=== PATIENT | female | born 1975 | race Caucasian/White ===

== ENCOUNTER 2017-06-01 04:01 | Inpatient (IN) | payer BC ==
[2017-06-01] MEDS ORDERED: Sodium Chloride 0.9% 500 ML IV ONE ×2 (04:24→04:44)
[2017-06-01] MEDS ORDERED: Sodium Chloride 0.9% 0 ML ONE (04:38)
[2017-06-01 04:42] LABS: BASO # 0.1 K/uL (0.0-0.2); BASO % 0.7 % (0.0-2.0); EOS # 0.3 K/uL (0.0-0.7); EOS % 4.1 % (0.0-4.0); HEMATOCRIT 37.2 % (34.0-47.0); LYMPH # 1.7 K/uL (1.0-4.3); LYMPH % 20.7 % (20.0-40.0); MEAN CELL VOLUME 85.6 fL (81.0-99.0); MEAN CORPUSCULAR HEMOGLOBIN 29.1 pg (27.0-31.0); MEAN CORPUSCULAR HGB CONC 34.1 g/dL (33.0-37.0); MEAN PLATELET VOLUME 8.2 fL (7.2-11.7); MONO # 0.7 K/uL (0.0-0.8); RED CELL DISTRIBUTION WIDTH 14.4 % (11.5-14.5); WHITE BLOOD COUNT 8.3 K/uL (4.8-10.8)
[2017-06-01 04:44] LABS: URINE BILIRUBIN NEGATIVE (NEGATIVE); URINE BLOOD NEGATIVE (NEGATIVE); URINE COLOR Straw (YELLOW); URINE GLUCOSE (UA) NORMAL (Normal); URINE KETONE NEGATIVE (NEGATIVE); URINE LEUKOCYTE ESTERASE NEG Leu/uL (Negative); URINE PROTEIN NEGATIVE (NEGATIVE); URINE UROBILINOGEN NORMAL mg/dL (0.2-1.0)
[2017-06-01 04:56] LABS: ALB/GLOB RATIO 1.3 (1.0-2.1); ALKALINE PHOSPHATASE 74 U/L (38-126); ALT/SGPT 37 U/L (9-52); AST/SGOT 23 U/L (14-36); BILIRUBIN,TOTAL 0.6 mg/dL (0.2-1.3); BLOOD UREA NITROGEN 12 mg/dL (7-17); CALCIUM 10.3 mg/dl (8.6-10.4); CARBON DIOXIDE 29 mmol/L (22-30); CHLORIDE 98 mmol/L (98-107); GFR AFRICAN-AMERICAN > 60; GLUCOSE,RANDOM 102 mg/dL (65-105); POTASSIUM 4.3 mmol/L (3.6-5.2); SODIUM 141 mmol/L (132-148); TOTAL PROTEIN 7.8 g/dL (6.3-8.3)
--- NOTE | 2017-06-01 06:07 | C.PDOC ---
History Of Present Illness 42 year old female who presents to the ER with a complaint of RUQ pain since last night. Patient states she has been unable to sleep due to worsening of pain. Patient reports she has had intermittent episodes of this pain and notes it usually self resolves, unlike tonight. Denies nausea, vomiting, or epigastric pain. Time Seen by Provider: 06/01/17 04:19 Chief Complaint (Nursing): Abdominal Pain History Per: Patient History/Exam Limitations: no limitations Onset/Duration Of Symptoms: Hrs Current Symptoms Are (Timing): Still Present Location Of Pain/Discomfort: RUQ Radiation Of Pain To:: None Quality Of Discomfort: Unable To Describe Associated Symptoms: denies: Fever, Chills, Nausea, Vomiting Exacerbating Factors: None Alleviating Factors: None Recent travel outside of the [place]: No Abnormal Vaginal Bleeding: No Past Medical History Reviewed: Historical Data, Nursing Documentation, Vital Signs Vital Signs: Last Vital Signs Temp 98.5 F 06/01/17 04:12 Pulse 89 06/01/17 04:12 Resp 18 06/01/17 04:12 BP 126/87 06/01/17 04:12 Pulse Ox 99 06/01/17 06:28 - Medical History PMH: Hypothyroidism Surgical History: No Surg Hx Family History: States: Unknown Family Hx - Social History Hx Alcohol Use: No Hx Substance Use: No - Immunization History Hx Tetanus Toxoid Vaccination: No Hx Influenza Vaccination: No Hx Pneumococcal Vaccination: No Review Of Systems Constitutional: Negative for: Fever, Chills Gastrointestinal: Positive for: Abdominal Pain. Negative for: Nausea, Vomiting Physical Exam - Physical Exam Appears: Non-toxic Skin: Normal Color, Warm, Dry Head: Atraumatic, Normacephalic Eye(s): bilateral: Normal Inspection, EOMI Oral Mucosa: Moist Neck: Normal, Supple Chest: Symmetrical, No Tenderness Cardiovascular: Rhythm Regular, No Murmur Respiratory: Normal Breath Sounds, No Rales, No Rhonchi, No Wheezing Gastrointestinal/Abdominal: Soft, Tenderness (RUQ), No Guarding, Other ( Positive rasmussen's sign) Back: No CVA Tenderness Neurological/Psych: Oriented x3, Normal Speech, Normal Cognition ED Course And Treatment - Laboratory Results Result Diagrams: 06/01/17 04:38 06/01/17 04:38 O2 Sat by Pulse Oximetry: 99 (Room air) Pulse Ox Interpretation: Normal - CT Scan/US Abdominal US Other Rad Studies (CT/US): Read By Radiologist, Radiology Report Reviewed CT/US Interpretation: FINDINGS: Liver: Echogenic liver consistent with hepatic steatosis. No intrahepatic bile duct dilation. Gallbladder: There is cholelithiasis with thickened gallbladder wall measuring 8 mm and. pericholecystic fluid worrisome for acute cholecystitis. Common bile duct: Unremarkable as visualized. No stones. No dilation. Pancreas: Unremarkable as visualized. Right kidney: Unremarkable. No stones. No solid mass. No hydronephrosis. IMPRESSION: There is cholelithiasis with thickened gallbladder wall and pericholecystic fluid worrisome for acute. cholecystitis Progress Note: Blood work, urinalysis, and abdominal US ordered. Pepcid, toradol , and IV fluids administered. Disposition - Disposition Disposition Time: 06:59 Condition: STABLE Forms: [employer] (Yakut) - Clinical Impression Clinical Impression: Acute cholecystitis - Scribe Statement The provider has reviewed the documentation as recorded by the Scribdoug Hopkins All medical record entries made by the Pacoibdoug were at my direction and personally dictated by me. I have reviewed the chart and agree that the record accurately reflects my personal performance of the history, physical exam, medical decision making, and the department course for this patient. I have also personally directed, reviewed, and agree with the discharge instructions and disposition. Physician Patient Turnover Patient Signed Over To: Yasmeen Carter Handoff Comments: needs surgical consult for possible admission
--- NOTE | 2017-06-01 07:54 | CP.PCM.CON ---
<Claudia Bowden - Last Filed: 06/01/17 09:12> History of Present Illness - History of Present Illness History of Present Illness: Surgery Patient is a 42 yo F w PMH of post op DVT, hypothyroidism who presents with complaints of severe episodic RUQ abdominal pain. She states that the pain came on yesterday afternoon, quickly worsened after having dinner and continued to progress late last night, which prompted her to come to the ED for further evaluation. She reports feelings of nausea and 2 episodes of vomiting in association. Patient further explains that these episodes of pain have been on- and-off over the last 4 months ago. Typically the pain is worse after eating big meals and have been associated with n/v. She describes last night to be the worst episode thus far. Patient reports no improvement with antacids and aggravation when doubling over. Of note, patient has had a long standing history of gastritis, however this current issue feels much different then her usual episodes. Pt had 6 or 7 similar episodes last few months. At this time, patient is in NAD. Denies signs of chest pain, SOB, hematemesis, hematochezia, hematuria, fever, diarrhea or constipation. No other complaints are noted. US shows thicken GB wall, pericholecystic fluds, gallstones reads as acute cholecystitis. Surgery is consulted to evaluate for acute cholecystitis PMH: DVT x2 , hypothyroid PSH: c section x2 Review of Systems - Constitutional Constitutional: Chills. absent: Fever, Headache - Cardiovascular Cardiovascular: absent: Chest Pain, Dyspnea, Leg Edema - Respiratory Respiratory: absent: Dyspnea - Gastrointestinal Gastrointestinal: Abdominal Pain, Bloating, Nausea, Vomiting. absent: Change in Bowel Habits, Constipation, Diarrhea, Hematemesis, Hematochezia, Loose Stools - Genitourinary Genitourinary: Urinary Frequency. 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) - PSYCHIATRIC Hx Substance Use: No - SURGICAL HISTORY Hx Section: Yes (3) - ANESTHESIA Hx Anesthesia: Yes Hx Anesthesia Reactions: No Hx Malignant Hyperthermia: No Meds Allergies/Adverse Reactions: Allergies Allergy/AdvReac Type Severity Reaction Status Date / Time No Known Allergies Allergy Unverified 06/01/17 04:11 - Medications Medications: Levothyroxine Ferrous Sulfate Physical Exam - Constitutional Appears: Non-toxic, No Acute Distress - Head Exam Head Exam: ATRAUMATIC, NORMOCEPHALIC - ENT Exam ENT Exam: Mucous Membranes Moist - Neck Exam Neck exam: Positive for: Full Rom - Respiratory Exam Respiratory Exam: Clear to Auscultation Bilateral, NORMAL BREATHING PATTERN. absent: Rales, Rhonchi, Wheezes - Cardiovascular Exam Cardiovascular Exam: REGULAR RHYTHM, RRR, +S1, +S2 - GI/Abdominal Exam GI & Abdominal Exam: Normal Bowel Sounds, Soft, Tenderness. absent: Distended, Guarding, Organomegaly, Rebound, Rigid Additional comments: (+) tenderness to deep palpation in RUQ and epigastric regions. (+) Venegas's sign - Rectal Exam Rectal Exam: Deferred - Neurological Exam Neurological exam: Alert, Oriented x3 - Skin Skin Exam: Normal Color, Warm Results - Vital Signs Recent Vital Signs: Last Vital Signs Temp 97.5 F L 06/01/17 06:59 Pulse 76 06/01/17 06:59 Resp 14 06/01/17 06:59 BP 107/70 06/01/17 06:59 Pulse Ox 99 06/01/17 07:04 - Labs Result Diagrams: 06/01/17 04:38 06/01/17 04:38 Labs: Laboratory Results - last 24 hr 06/01/17 06/01/17 06/01/17 04:38 04:38 04:38 WBC 8.3 RBC 4.35 Hgb 12.7 Hct 37.2 MCV 85.6 MCH 29.1 MCHC 34.1 RDW 14.4 Plt Count 231 MPV 8.2 Neut % (Auto) 65.5 Lymph % (Auto) 20.7 Winston % (Auto) 9.0 Eos % (Auto) 4.1 H Baso % (Auto) 0.7 Neut # 5.4 Lymph # 1.7 Winston # 0.7 Eos # 0.3 Baso # 0.1 Sodium 141 Potassium 4.3 Chloride 98 Carbon Dioxide 29 Anion Gap 19 BUN 12 Creatinine 0.7 Est GFR ( Amer) > 60 Est GFR (Non-Af Amer) > 60 Random Glucose 102 Calcium 10.3 Total Bilirubin 0.6 AST 23 ALT 37 Alkaline Phosphatase 74 Total Protein 7.8 Albumin 4.4 Globulin 3.5 Albumin/Globulin Ratio 1.3 Lipase 151 Urine Color Straw Urine Clarity Clear Urine pH 7.0 Ur Specific [place] 1.009 Urine Protein Negative Urine Glucose (UA) Normal Urine Ketones Negative Urine Blood Negative Urine Nitrate Negative Urine Bilirubin Negative Urine Urobilinogen Normal Ur Leukocyte Esterase Neg Ur Squamous Epith Cells 1 Urine HCG, Qual Negative Assessment & Plan - Assessment and Plan (Free Text) Assessment: 42 yo F with acute cholecystitis - NPO -IVF -ABX -Lap yassine tomorrow - Consent in chart DW Dr. Welch <Khurram Welch - Last Filed: 06/02/17 18:45> Meds - Medications Medications: Current Medications Acetaminophen (Tylenol 325mg Tab) 975 mg PO Q6 PRN PRN Reason: Fever >100.4 F Enoxaparin Sodium (Lovenox) 40 mg SC DAILY [facility] Last Admin: 06/01/17 09:48 Dose: 40 mg Hydromorphone HCl (Dilaudid) 0.5 mg IVP Q4H PRN PRN Reason: Pain, severe (8-10) Last Admin: 06/02/17 06:11 Dose: 0.5 mg Sodium Chloride (Sodium Chloride 0.9%) 1,000 mls @ 100 mls/hr IV .Q10H [facility] Last Admin: 06/02/17 15:30 Dose: Not Given Piperacillin Sod/Tazobactam Sod (Zosyn 3.375 Gm Iv Premix) 3.375 gm in 50 mls @ 100 mls/hr IVPB Q8H [facility] Last Admin: 06/02/17 10:40 Dose: 50 mls Metronidazole (Flagyl) 250 mg in 50 mls @ 100 mls/hr IVPB Q8H [facility] Stop: 06/06/17 21:01 Last Admin: 06/02/17 14:32 Dose: 100 mls/hr Levothyroxine Sodium (Synthroid) 75 mcg PO DAILY@0630 [facility] Last Admin: 06/02/17 07:50 Dose: 75 mcg Ondansetron HCl (Zofran Inj) 4 mg IVP Q4 PRN PRN Reason: Nausea/Vomiting Last Admin: 06/02/17 07:03 Dose: 4 mg Oxycodone/Acetaminophen (Percocet 5/325 Mg Tab) 2 tab PO Q4H PRN PRN Reason: Pain, Mild (1-3) Stop: 06/05/17 12:23 Last Admin: 06/02/17 18:09 Dose: 2 tab Pantoprazole Sodium (Protonix Ec Tab) 40 mg PO DAILY@1200 [facility] Last Admin: 06/02/17 14:32 Dose: 40 mg Results - Vital Signs Recent Vital Signs: Last Vital Signs Temp 97.8 F 06/02/17 15:00 Pulse 92 H 06/02/17 15:00 Resp 20 06/02/17 15:00 BP 111/76 06/02/17 15:00 Pulse Ox 96 06/02/17 15:00 - Labs Result Diagrams: 06/02/17 07:35 06/02/17 07:35 Labs: Laboratory Results - last 24 hr 06/02/17 06/02/17 06/02/17 07:23 07:35 07:35 WBC 5.7 RBC 3.93 Hgb 11.6 Hct 34.1 MCV 86.8 MCH 29.5 MCHC 33.9 RDW 14.6 H Plt Count 198 MPV 8.4 Neut % (Auto) 59.3 Lymph % (Auto) 25.1 Winston % (Auto) 10.6 H Eos % (Auto) 4.1 H Baso % (Auto) 0.9 Neut # 3.4 Lymph # 1.4 Winston # 0.6 Eos # 0.2 Baso # 0.0 PT 11.8 INR 1.1 APTT 28 Sodium Potassium Chloride Carbon Dioxide Anion Gap BUN Creatinine Est GFR ( Amer) Est GFR (Non-Af Amer) Random Glucose Calcium Total Bilirubin AST ALT Alkaline Phosphatase Total Protein Albumin Globulin Albumin/Globulin Ratio Urine HCG, Qual Negative 06/02/17 07:35 WBC RBC Hgb Hct MCV MCH MCHC RDW Plt Count MPV Neut % (Auto) Lymph % (Auto) Winston % (Auto) Eos % (Auto) Baso % (Auto) Neut # Lymph # Winston # Eos # Baso # PT INR APTT Sodium 143 Potassium 4.4 Chloride 105 Carbon Dioxide 28 Anion Gap 14 BUN 8 Creatinine 0.8 Est GFR ( Amer) > 60 Est GFR (Non-Af Amer) > 60 Random Glucose 90 Calcium 9.2 Total Bilirubin 0.8 AST 23 ALT 37 Alkaline Phosphatase 70 Total Protein 7.0 Albumin 3.9 Globulin 3.1 Albumin/Globulin Ratio 1.3 Urine HCG, Qual Attending/Attestation - Attestation I have personally seen and examined this patient.: Yes I have fully participated in the care of the patient.: Yes I have reviewed all pertinent clinical information: Yes Notes (Text): 06/02/17 18:44 Pt was seen and examined at bedside Agree with above note and assessment Pt with Cholelithiasis and Cholecystitis Abdomen : Tender in RUQ Labs and Radiology reviewed Ass: Cholelithiasis with cholecystitis Plan : Pt would need Lap/Robotic Cholecystectomy possible Open Consent NPO, IVF IV antibiotics Plan d.w pt in detail Risk and benefit explained in detail.
[2017-06-01] MEDS ORDERED: Piperacillin/Tazobact 3.375 gm 100 ML IV STA (08:20)
[2017-06-01] MEDS ORDERED: Piperacillin/Tazobact 3.375 gm 100 ML IVPB ONE (08:53)
[2017-06-01] MEDS ORDERED: Piperacillin/Tazobact 3.375 GM in Sodium Chloride 100 ML IVPB SCH (09:30)
[2017-06-01] MEDS: Sodium Chloride 0.9% 1,000 ML IV SCH ×2 (09:39→18:29)
[2017-06-01] MEDS ORDERED: Enoxaparin 40 mg Syringe ONE (09:42)
[2017-06-01] MEDS ORDERED: Levothyroxine 75 MCG TAB PO SCH (10:00)
[2017-06-01] MEDS ORDERED: Enoxaparin 40 mg Syringe SC SCH (10:00)
--- NOTE | 2017-06-01 10:54 | US ---
Right upper quadrant abdominal ultrasound History: Right upper quadrant abdominal pain. Comparison: None available. Technique: Real-time sonography was performed through the right upper quadrant of the abdomen. Findings: Liver: 16.4 centimeters in length. Increased echogenicity of the hepatic parenchymal cortex suggestive for fatty infiltration versus hepatic parenchymal disease. Gallbladder: Cholelithiasis. Gallbladder wall is thickened measuring up to 8 millimeters. Adjacent pericholecystic fluid and edema. Common bile duct measures 3.6 millimeters, within normal limits. Visualized portions of the pancreas are preserved. Pancreatic tail not well visualized. Visualized aorta and IVC are preserved. Right kidney: 8.8 x 4.0 x 4.6 centimeters. No calculi or hydronephrosis. Impression: Cholelithiasis with gallbladder wall thickening and edema with associated pericholecystic fluid. These findings are concerning for possible acute cholecystitis. Clinical correlation. These findings were preliminarily reported at 6:25 a.m. on 06/01/[address] Greg Camacho from [facility].
[2017-06-01] MEDS: Piperacill/Tazo 3.375gm in Dex 3.375 GM/50 ML BAG IVPB SCH ×2 (12:15→18:29)
--- NOTE | 2017-06-01 17:51 | RAD ---
HISTORY: preop COMPARISON: No prior. FINDINGS: LUNGS: No active pulmonary disease. PLEURA: No significant pleural effusion identified, no pneumothorax apparent. CARDIOVASCULAR: Normal. OSSEOUS STRUCTURES: No significant abnormalities. VISUALIZED UPPER ABDOMEN: Normal. OTHER FINDINGS: None. IMPRESSION: No active disease.
[2017-06-01] MEDS: HYDROmorphone 0.5 mg/0.5 ml ISec IVP PRN (18:29)
--- NOTE | 2017-06-01 21:12 | CP.PCM.HP ---
Past Patient History - Past Medical History & Family History Past Medical History?: Yes - Past Social History Smoking Status: Never Smoked - CARDIAC Hx Cardiac Disorders: No - PULMONARY Hx Respiratory Disorders: No - NEUROLOGICAL Hx Neurological Disorder: No - HEENT Hx HEENT Problems: No - RENAL Hx Chronic Kidney Disease: No - ENDOCRINE/METABOLIC Hx Hypothyroidism: Yes - HEMATOLOGICAL/ONCOLOGICAL Hx Anemia: Yes (Iron-deficiency anemia) Other/Comment: H/o of DVTs during , anti-phospholipid syndrome - INTEGUMENTARY Hx Dermatological Problems: No - MUSCULOSKELETAL/RHEUMATOLOGICAL Hx Musculoskeletal Disorders: No Hx Falls: No - GASTROINTESTINAL Hx Bowel Surgery: No 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) - GENITOURINARY/GYNECOLOGICAL Hx Genitourinary Disorders: No - PSYCHIATRIC Hx Psychophysiologic Disorder: No Hx Substance Use: No - SURGICAL HISTORY Hx Section: Yes (3) - ANESTHESIA Hx Anesthesia: Yes Hx Anesthesia Reactions: No Hx Malignant Hyperthermia: No Has any member of the family had a problem w/ anesthesia?: No Meds Allergies/Adverse Reactions: Allergies Allergy/AdvReac Type Severity Reaction Status Date / Time No Known Allergies Allergy Unverified 06/01/17 04:11 Physical Exam - Constitutional Appears: Well - Head Exam Head Exam: ATRAUMATIC, NORMAL INSPECTION, NORMOCEPHALIC - Eye Exam Eye Exam: EOMI, Normal appearance, PERRL Pupil Exam: NORMAL ACCOMODATION, PERRL - ENT Exam ENT Exam: Mucous Membranes Moist, Normal Exam - Neck Exam Neck exam: Positive for: Normal Inspection - Respiratory Exam Respiratory Exam: Decreased Breath Sounds - Cardiovascular Exam Cardiovascular Exam: REGULAR RHYTHM, +S1, +S2 - GI/Abdominal Exam GI & Abdominal Exam: Diminished Bowel Sounds, Soft - Rectal Exam Rectal Exam: Deferred Results - Vital Signs Recent Vital Signs: Last Vital Signs Temp 97.9 F 06/01/17 16:05 Pulse 67 06/01/17 16:05 Resp 20 06/01/17 16:05 BP 106/72 06/01/17 16:05 Pulse Ox 98 06/01/17 16:05 - Labs Result Diagrams: 06/01/17 04:38 06/01/17 04:38
[2017-06-01] MEDS: metroNIDAZOLE IV 250mg/50 ml 250 MG/50 ML BAG IVPB SCH (21:34)
[2017-06-01] MEDS ORDERED: metroNIDAZOLE IV 500 mg/100 ml 250 MG in Premixed IV 1 EA IVPB SCH (22:00)
[2017-06-02] MEDS: Piperacill/Tazo 3.375gm in Dex 3.375 GM/50 ML BAG IVPB SCH ×3 (02:42→19:43)
[2017-06-02] MEDS: Sodium Chloride 0.9% 1,000 ML IV SCH ×2 (05:39→15:30)
[2017-06-02] MEDS: metroNIDAZOLE IV 250mg/50 ml 250 MG/50 ML BAG IVPB SCH ×3 (05:39→21:29)
[2017-06-02] MEDS: HYDROmorphone 0.5 mg/0.5 ml ISec IVP PRN (06:11)
[2017-06-02 07:50] LABS: BASO % 0.9 % (0.0-2.0); EOS # 0.2 K/uL (0.0-0.7); EOS % 4.1 % (0.0-4.0); HEMATOCRIT 34.1 % (34.0-47.0); LYMPH # 1.4 K/uL (1.0-4.3); LYMPH % 25.1 % (20.0-40.0); MEAN CELL VOLUME 86.8 fL (81.0-99.0); MEAN CORPUSCULAR HEMOGLOBIN 29.5 pg (27.0-31.0); MEAN CORPUSCULAR HGB CONC 33.9 g/dL (33.0-37.0); MEAN PLATELET VOLUME 8.4 fL (7.2-11.7); MONO # 0.6 K/uL (0.0-0.8); MONO % 10.6 % (0.0-10.0); NRBC % 0.1 % (0.0-2.0); RED CELL DISTRIBUTION WIDTH 14.6 % (11.5-14.5); WHITE BLOOD COUNT 5.7 K/uL (4.8-10.8)
[2017-06-02] MEDS: Levothyroxine 75 MCG TAB PO SCH (07:50)
[2017-06-02 07:59] LABS: INR 1.1
[2017-06-02 08:16] LABS: CHLORIDE 105 mmol/L (98-107); POTASSIUM 4.4 mmol/L (3.6-5.2); SODIUM 143 mmol/L (132-148)
[2017-06-02 08:18] LABS: BILIRUBIN,TOTAL 0.8 mg/dL (0.2-1.3); GFR AFRICAN-AMERICAN > 60
[2017-06-02 08:19] LABS: ALB/GLOB RATIO 1.3 (1.0-2.1); ALKALINE PHOSPHATASE 70 U/L (38-126); ALT/SGPT 37 U/L (9-52); AST/SGOT 23 U/L (14-36); BLOOD UREA NITROGEN 8 mg/dL (7-17); CALCIUM 9.2 mg/dl (8.6-10.4); CARBON DIOXIDE 28 mmol/L (22-30); GLUCOSE,RANDOM 90 mg/dL (65-105)
[2017-06-02] MEDS ORDERED: Midazolam 2 MG/2 ML VIAL ONE (09:04)
[2017-06-02] MEDS ORDERED: Propofol 10 mg/ml Inj (20 ML) ONE (09:05)
[2017-06-02] MEDS ORDERED: Rocuronium 10 mg/ml (5 ml) ONE (09:05)
[2017-06-02] MEDS ORDERED: Lactated Ringer's 1,000 ML IV ONE ×3 (09:14→11:26)
[2017-06-02] MEDS ORDERED: Bupivacaine-Epi 0.25%-1:200,000 PF Inj ONE (09:33)
[2017-06-02] MEDS ORDERED: cefOXitin IV 1 gm in Dextrose 0 GM/0 ML BAG IVPB ONE (09:33)
[2017-06-02] MEDS ORDERED: Lidocaine 1% Inj (20ml) ONE (09:33)
[2017-06-02] MEDS: Pantoprazole 40 mg EC Tab PO SCH ×2 (10:30→14:32)
[2017-06-02] MEDS ORDERED: Esmolol 100 mg/10ml Inj IV ONE (11:13)
[2017-06-02] MEDS ORDERED: Neostigmine Methylsulfate 3mg/3ml Syringe IV ONE (11:15)
[2017-06-02] MEDS ORDERED: Labetalol 25mg/5ml Syringe ONE (11:27)
--- NOTE | 2017-06-02 12:24 | PCM.SURG1 ---
Surgeon's Initial Post Op Note - Surgeon's Notes Surgeon: Dr. Welch Underground Distribution Engineer: Claudia Bowden PGY2, [place] Type of Anesthesia: General Endo Pre-Operative Diagnosis: Acute cholecystitis Operative Findings: pericholecystic fluids. acute cholecystitis , umbilical hernia Post-Operative Diagnosis: Same Operation Performed: Robot assisted laparoscopic cholecystitis , umbilical hernia repair Specimen/Specimens Removed: Gallbladder Estimated Blood Loss: EBL {In ML}: 10 Blood Products Given: N/A Drains Used: No Drains Post-Op Condition: Good Date of Surgery/Procedure: 06/02/17 Time of Surgery/Procedure: 12:23
[2017-06-02] MEDS ORDERED: HYDROmorphone 0.5 mg/0.5 ml ISec IVP PRN (12:29)
[2017-06-02] MEDS: Oxycodone/Acetaminophen 5/325 mg Tab PO PRN (18:09)
--- NOTE | 2017-06-02 18:53 | CP.PCM.PN ---
Subjective - Date & Time of Evaluation Date of Evaluation: 06/02/17 Time of Evaluation: 10:40 - Subjective Subjective: clinically same Objective - Vital Signs/Intake and Output Vital Signs (last 24 hours): Temp Pulse Resp BP Pulse Ox 97.8 F 92 H 20 111/76 96 06/02/17 15:00 06/02/17 15:00 06/02/17 15:00 06/02/17 15:00 06/02/17 15:00 Intake and Output: 06/02/17 06/02/17 06:59 18:59 Intake Total 300 Output Total 300 Balance 0 - Medications Medications: Current Medications Acetaminophen (Tylenol 325mg Tab) 975 mg PO Q6 PRN PRN Reason: Fever >100.4 F Enoxaparin Sodium (Lovenox) 40 mg SC DAILY [facility] Last Admin: 06/01/17 09:48 Dose: 40 mg Hydromorphone HCl (Dilaudid) 0.5 mg IVP Q4H PRN PRN Reason: Pain, severe (8-10) Last Admin: 06/02/17 06:11 Dose: 0.5 mg Sodium Chloride (Sodium Chloride 0.9%) 1,000 mls @ 100 mls/hr IV .Q10H [facility] Last Admin: 06/02/17 15:30 Dose: Not Given Piperacillin Sod/Tazobactam Sod (Zosyn 3.375 Gm Iv Premix) 3.375 gm in 50 mls @ 100 mls/hr IVPB Q8H [facility] Last Admin: 06/02/17 10:40 Dose: 50 mls Metronidazole (Flagyl) 250 mg in 50 mls @ 100 mls/hr IVPB Q8H [facility] Stop: 06/06/17 21:01 Last Admin: 06/02/17 14:32 Dose: 100 mls/hr Levothyroxine Sodium (Synthroid) 75 mcg PO DAILY@0630 [facility] Last Admin: 06/02/17 07:50 Dose: 75 mcg Ondansetron HCl (Zofran Inj) 4 mg IVP Q4 PRN PRN Reason: Nausea/Vomiting Last Admin: 06/02/17 07:03 Dose: 4 mg Oxycodone/Acetaminophen (Percocet 5/325 Mg Tab) 2 tab PO Q4H PRN PRN Reason: Pain, Mild (1-3) Stop: 06/05/17 12:23 Last Admin: 06/02/17 18:09 Dose: 2 tab Pantoprazole Sodium (Protonix Ec Tab) 40 mg PO DAILY@1200 [facility] Last Admin: 06/02/17 14:32 Dose: 40 mg - Labs Labs: 06/02/17 07:35 06/02/17 07:35 PT 11.8 SECONDS (9.7-12.2) 06/02/17 07:35 INR 1.1 06/02/17 07:35 APTT 28 SECONDS (21-34) 06/02/17 07:35
[2017-06-03] MEDS: HYDROmorphone 0.5 mg/0.5 ml ISec IVP PRN (01:21)
[2017-06-03] MEDS: Sodium Chloride 0.9% 1,000 ML IV SCH ×2 (01:21→12:15)
[2017-06-03] MEDS: Piperacill/Tazo 3.375gm in Dex 3.375 GM/50 ML BAG IVPB SCH ×2 (04:24→12:16)
[2017-06-03] MEDS: metroNIDAZOLE IV 250mg/50 ml 250 MG/50 ML BAG IVPB SCH ×2 (04:27→13:34)
--- NOTE | 2017-06-03 05:16 | OP ---
PROCEDURE DATE: 06/02/2017 PREOPERATIVE DIAGNOSES: Cholelithiasis and cholecystitis. POSTOPERATIVE DIAGNOSES: 1. Cholelithiasis and acute cholecystitis. 2. Umbilical hernia containing preperitoneal fat 2 x 2 cm. PROCEDURE: 1. Robotic cholecystectomy. 2. A primary umbilical hernia repair with a mesh. SURGEON: Khurram Welch MD COUNSELING AIDE: KACEY Malone TYPE OF ANESTHESIA: General endotracheal tube anesthesia. ESTIMATED BLOOD LOSS: Around 10 mL DRAIN: None. PATHOLOGY: 1. The gallbladder was sent to the pathology. 2. Umbilical hernial sac and content. COMPLICATIONS: None. INTRAOPERATIVE FINDINGS: The patient had changes of acute cholecystitis and cholelithiasis and the patient also had 2 x 2 cm large umbilical hernia. DESCRIPTION OF PROCEDURE: On intraoperative steps, this 42-year-old female who was diagnosed with cholecystitis and cholelithiasis and the patient was consented for robotic cholecystectomy possible open, brought to the OR, and placed supine on the operating table. After induction of the anesthesia, the abdomen was prepped and draped in usual sterile fashion. The infraumbilical transverse incision was made after incising the skin and subcutaneous tissue. The patient found to have a large umbilical hernia and through the umbilical hernia, the robotic camera port was placed, pneumo was created. Another three 8-mm port was placed in upper abdomen, robot was brought in, camera arm as well as arm 1 and arm 2 were docked and gallbladder was retracted cranially. Calot's triangle dissection was done. The gallbladder was aspirated because it was extremely thick and edematous and Calot's triangle dissection was done. Intra Op Firfly was used and Ductal anatomy was identified. After that The cystic duct and cystic artery was identified and clipped at 3 places and cut in between 2 clips near by gallbladder and the gallbladder was dissected free from the gallbladder fossa, taken in an endo catch bag, taken out through the umbilical port site, and sent off the table for the pathology. There was a proper hemostasis in each and every part of the procedure and all the instrument was taken off, the robot was undocked. All the ports were taken down under vision, pneumo was deflated. Now, the umbilical port site hernia was explored and hernial sac and content was dissected and preperitoneal fat and hernial sac was sent off the tablet for the pathology and the hernial defect was closed primarily with 0 Prolene interrupted sutures multiple and after the proper hernia repair, the skin was closed with 4-0 Monocryl and dry dressing was applied. The patient tolerated the procedure well. Count of the instruments and gauze was correct. There was no apparent complications. The patient was extubated in OR and sent to the postanesthesia care unit in stable condition. Khurram Welch MD MTDD
[2017-06-03] MEDS: Levothyroxine 75 MCG TAB PO SCH (05:57)
[2017-06-03 08:00] LABS: BASO % 0.4 % (0.0-2.0); EOS # 0.1 K/uL (0.0-0.7); EOS % 0.8 % (0.0-4.0); HEMATOCRIT 33.2 % (34.0-47.0); LYMPH # 1.5 K/uL (1.0-4.3); LYMPH % 16.5 % (20.0-40.0); MEAN CELL VOLUME 86.7 fL (81.0-99.0); MEAN CORPUSCULAR HEMOGLOBIN 29.3 pg (27.0-31.0); MEAN CORPUSCULAR HGB CONC 33.8 g/dL (33.0-37.0); MEAN PLATELET VOLUME 8.4 fL (7.2-11.7); MONO # 0.9 K/uL (0.0-0.8); MONO % 10.2 % (0.0-10.0); RED CELL DISTRIBUTION WIDTH 14.3 % (11.5-14.5); WHITE BLOOD COUNT 8.8 K/uL (4.8-10.8)
[2017-06-03 08:16] LABS: CHLORIDE 104 mmol/L (98-107); POTASSIUM 3.8 mmol/L (3.6-5.2); SODIUM 142 mmol/L (132-148)
[2017-06-03 08:19] LABS: GFR AFRICAN-AMERICAN > 60
[2017-06-03 08:20] LABS: ALB/GLOB RATIO 1.3 (1.0-2.1); ALKALINE PHOSPHATASE 59 U/L (38-126); ALT/SGPT 44 U/L (9-52); AST/SGOT 28 U/L (14-36); BLOOD UREA NITROGEN 6 mg/dL (7-17); CALCIUM 8.7 mg/dl (8.6-10.4); CARBON DIOXIDE 27 mmol/L (22-30); GLUCOSE,RANDOM 101 mg/dL (65-105); TOTAL PROTEIN 6.4 g/dL (6.3-8.3)
--- NOTE | 2017-06-03 08:24 | CP.PCM.PN ---
Addendum entered and electronically signed by Claudia Bowden DO 06/03/17 09:59: OK to DC for surgical standpoint. Original Note: <Tk Martin - Last Filed: 06/03/17 08:26> Subjective - Date & Time of Evaluation Date of Evaluation: 06/03/17 Time of Evaluation: 07:15 - Subjective Subjective: General Surgery- Dr. Welch Pt S&E at bedside this AM. NAEO. Pt pain doing better, pain appropriately tender around incision. tolerating diet. +OOB. - BM or flatus. Denies CP/SOB N/V /D F/C Objective - Vital Signs/Intake and Output Vital Signs (last 24 hours): Temp Pulse Resp BP Pulse Ox 98.4 F 95 H 18 125/73 96 06/02/17 23:20 06/02/17 23:20 06/02/17 23:20 06/02/17 23:20 06/02/17 23:20 Intake and Output: 06/03/17 06/03/17 06:59 18:59 Intake Total 510 Balance 510 - Medications Medications: Current Medications Acetaminophen (Tylenol 325mg Tab) 975 mg PO Q6 PRN PRN Reason: Fever >100.4 F Enoxaparin Sodium (Lovenox) 40 mg SC DAILY [facility] Last Admin: 06/01/17 09:48 Dose: 40 mg Hydromorphone HCl (Dilaudid) 0.5 mg IVP Q4H PRN PRN Reason: Pain, severe (8-10) Last Admin: 06/03/17 01:21 Dose: 0.5 mg Sodium Chloride (Sodium Chloride 0.9%) 1,000 mls @ 100 mls/hr IV .Q10H [facility] Last Admin: 06/03/17 01:21 Dose: 100 mls/hr Piperacillin Sod/Tazobactam Sod (Zosyn 3.375 Gm Iv Premix) 3.375 gm in 50 mls @ 100 mls/hr IVPB Q8H [facility] Last Admin: 06/03/17 04:24 Dose: 100 mls/hr Metronidazole (Flagyl) 250 mg in 50 mls @ 100 mls/hr IVPB Q8H [facility] Stop: 06/06/17 21:01 Last Admin: 09/14/17 04:27 Dose: 100 mls/hr Levothyroxine Sodium (Synthroid) 75 mcg PO DAILY@0630 [facility] Last Admin: 06/03/17 05:57 Dose: 75 mcg Ondansetron HCl (Zofran Inj) 4 mg IVP Q4 PRN PRN Reason: Nausea/Vomiting Last Admin: 06/03/17 01:27 Dose: 4 mg Oxycodone/Acetaminophen (Percocet 5/325 Mg Tab) 2 tab PO Q4H PRN PRN Reason: Pain, Mild (1-3) Stop: 06/05/17 12:23 Last Admin: 06/02/17 18:09 Dose: 2 tab Pantoprazole Sodium (Protonix Ec Tab) 40 mg PO DAILY@1200 [facility] Last Admin: 06/02/17 14:32 Dose: 40 mg - Labs Labs: 06/03/17 07:42 06/02/17 07:35 PT 11.8 SECONDS (9.7-12.2) 06/02/17 07:35 INR 1.1 06/02/17 07:35 APTT 28 SECONDS (21-34) 06/02/17 07:35 - Constitutional Appears: No Acute Distress - Head Exam Head Exam: ATRAUMATIC - Eye Exam Eye Exam: EOMI - ENT Exam ENT Exam: Mucous Membranes Moist - Respiratory Exam Respiratory Exam: NORMAL BREATHING PATTERN. absent: Accessory Muscle Use, Rales , Rhonchi, Wheezes - Cardiovascular Exam Cardiovascular Exam: +S1, +S2 - GI/Abdominal Exam GI & Abdominal Exam: Soft, Tenderness. absent: Distended, Firm, Rigid, Hernia Additional comments: appropriately tender around incision - Extremities Exam Extremities Exam: absent: Calf Tenderness - Neurological Exam Neurological Exam: Alert, Awake, Oriented x3 - Psychiatric Exam Psychiatric exam: Normal Affect - Skin Skin Exam: Normal Color, Warm Assessment and Plan - Assessment and Plan (Free Text) Assessment: 42F s/p Robot assisted laparoscopic cholecystitis , umbilical hernia repair POD# 1 Plan: - encourage ambulation/IC - pain control - If pt has return of bowel function, cleared for discharge - further recs per Dr. Yuri Martin PGY1 <Khurram Welch - Last Filed: 06/04/17 19:54> Objective - Vital Signs/Intake and Output Vital Signs (last 24 hours): Temp Pulse Resp BP Pulse Ox 98.2 F 75 20 109/72 95 06/03/17 15:35 06/03/17 15:35 06/03/17 15:35 06/03/17 15:35 06/03/17 15:35 - Labs Labs: 06/03/17 07:42 06/03/17 07:42 PT 11.8 SECONDS (9.7-12.2) 06/02/17 07:35 INR 1.1 06/02/17 07:35 APTT 28 SECONDS (21-34) 06/02/17 07:35 Attending/Attestation - Attestation I have personally seen and examined this patient.: Yes I have fully participated in the care of the patient.: Yes I have reviewed all pertinent clinical information, including history, physical exam and plan: Yes Notes (Text): 06/04/17 19:42 Pt was seen and examine at bedside Agree with above note and assessment Low fat red diet Po Percocet as out pt f.u after 10 days Plan d.w pt in detail.
[2017-06-03 08:29] VITALS: RESP 20
--- NOTE | 2017-06-03 11:41 | CP.PCM.PN ---
<Candelario Guillory - Last Filed: 06/03/17 11:41> Subjective - Date & Time of Evaluation Date of Evaluation: 06/03/17 Time of Evaluation: 11:30 - Subjective Subjective: Progress note. Attending: Dr. Rosy Meza Pt seen and examined at bedside. No acute distress. No events overnight. Pt says abdominal pain is a lot better. S/P robotic cholecystectomy. Denies fevers , chills, vomiting, diarrhea, surgery following. Objective - Vital Signs/Intake and Output Vital Signs (last 24 hours): Temp Pulse Resp BP Pulse Ox 98.3 F 80 20 113/74 100 06/03/17 08:00 06/03/17 08:00 06/03/17 08:00 06/03/17 08:00 06/03/17 08:00 Intake and Output: 06/03/17 06/03/17 06:59 18:59 Intake Total 510 Balance 510 - Medications Medications: Current Medications Acetaminophen (Tylenol 325mg Tab) 975 mg PO Q6 PRN PRN Reason: Fever >100.4 F Enoxaparin Sodium (Lovenox) 40 mg SC DAILY [facility] Last Admin: 06/01/17 09:48 Dose: 40 mg Hydromorphone HCl (Dilaudid) 0.5 mg IVP Q4H PRN PRN Reason: Pain, severe (8-10) Last Admin: 06/03/17 01:21 Dose: 0.5 mg Sodium Chloride (Sodium Chloride 0.9%) 1,000 mls @ 100 mls/hr IV .Q10H [facility] Last Admin: 06/03/17 01:21 Dose: 100 mls/hr Piperacillin Sod/Tazobactam Sod (Zosyn 3.375 Gm Iv Premix) 3.375 gm in 50 mls @ 100 mls/hr IVPB Q8H [facility] Last Admin: 06/03/17 04:24 Dose: 100 mls/hr Metronidazole (Flagyl) 250 mg in 50 mls @ 100 mls/hr IVPB Q8H [facility] Stop: 06/06/17 21:01 Last Admin: 06/03/17 04:27 Dose: 100 mls/hr Levothyroxine Sodium (Synthroid) 75 mcg PO DAILY@0630 [facility] Last Admin: 06/03/17 05:57 Dose: 75 mcg Ondansetron HCl (Zofran Inj) 4 mg IVP Q4 PRN PRN Reason: Nausea/Vomiting Last Admin: 06/03/17 01:27 Dose: 4 mg Oxycodone/Acetaminophen (Percocet 5/325 Mg Tab) 2 tab PO Q4H PRN PRN Reason: Pain, Mild (1-3) Stop: 06/05/17 12:23 Last Admin: 06/02/17 18:09 Dose: 2 tab Pantoprazole Sodium (Protonix Ec Tab) 40 mg PO DAILY@1200 [facility] Last Admin: 06/02/17 14:32 Dose: 40 mg - Labs Labs: 06/03/17 07:42 06/03/17 07:42 PT 11.8 SECONDS (9.7-12.2) 06/02/17 07:35 INR 1.1 06/02/17 07:35 APTT 28 SECONDS (21-34) 06/02/17 07:35 - Constitutional Appears: Non-toxic, No Acute Distress - Head Exam Head Exam: ATRAUMATIC, NORMAL INSPECTION, NORMOCEPHALIC - Eye Exam Eye Exam: EOMI - ENT Exam ENT Exam: Mucous Membranes Moist - Neck Exam Neck Exam: Full ROM, Normal Inspection - Respiratory Exam Respiratory Exam: NORMAL BREATHING PATTERN. absent: Respiratory Distress - Cardiovascular Exam Cardiovascular Exam: +S1, +S2 - GI/Abdominal Exam GI & Abdominal Exam: Tenderness, Hypoactive Bowel Sounds - Extremities Exam Extremities Exam: Full ROM, Normal Inspection - Neurological Exam Neurological Exam: Alert, Awake, Oriented x3 - Psychiatric Exam Psychiatric exam: Normal Affect, Normal Mood - Skin Skin Exam: Dry, Intact, Normal Color, Warm Assessment and Plan - Assessment and Plan (Free Text) Assessment: This is a 42 yo female with past medical hx of post op DVT and hypothyroidism presenting with acute cholecystitis 1. Acute cholecystitis -surgery following -s/p robotic cholecystectomy -no complications -pt recovering well -pain control with dilaudid and percocet -advance diet as tolerated -encourage ambulation -IV NS -continue IV flagyl and zosyn -zofran for nausea 2. hx of hypothyroidism -continue home synthroid 3. hx of post op DVT -lovenox SC daily 4. GI/DVT ppx -protonix daily -lovenox daily discussed with Dr. Meza. <Karan Meza S - Last Filed: 06/03/17 23:47> Objective - Vital Signs/Intake and Output Vital Signs (last 24 hours): Temp Pulse Resp BP Pulse Ox 98.2 F 75 20 109/72 95 06/03/17 15:35 06/03/17 15:35 06/03/17 15:35 06/03/17 15:35 06/03/17 15:35 Intake and Output: 06/03/17 06/04/17 18:59 06:59 Intake Total 1500 Balance 1500 - Labs Labs: 06/03/17 07:42 06/03/17 07:42 PT 11.8 SECONDS (9.7-12.2) 06/02/17 07:35 INR 1.1 06/02/17 07:35 APTT 28 SECONDS (21-34) 06/02/17 07:35 Attending/Attestation - Attestation I have personally seen and examined this patient.: Yes I have fully participated in the care of the patient.: Yes I have reviewed all pertinent clinical information, including history, physical exam and plan: Yes Notes (Text): 06/03/17 23:47 Admitted for cholecystectomy patients to be discharged on the Levaquin patient understood also advised to be followed up in my office in next 48 hours patient understood for discharge today
[2017-06-03] MEDS: Oxycodone/Acetaminophen 5/325 mg Tab PO PRN (12:22)
[2017-06-03] MEDS: Pantoprazole 40 mg EC Tab PO SCH (13:29)
[2017-06-03 15:37] VITALS: BP 109/72; PULSE 75; TEMP 98.2; O2SAT 95
== END 2017-06-03 16:40 | disposition home or self-care (01) | DRG 419 ==
LOC: C.ER 04:01 → C.9E 08:18 → C.5S 10:35
PROVIDERS: ADMIT Internal Medicine Nephrology; ATTEND Internal Medicine Nephrology
PROC: 0WQF0ZZ Repair Abdominal Wall, Open Approach (ICD-10-PCS; 2017-06-02)
PROC: 8E0W4CZ Robotic Assisted Procedure of Trunk Region, Percutaneous Endoscopic Approach (ICD-10-PCS; 2017-06-02)
PROC: 0FT44ZZ Resection of Gallbladder, Percutaneous Endoscopic Approach (ICD-10-PCS; principal; 2017-06-02 12:00)
DX: K80.00 Calculus of gallbladder with acute cholecystitis without obstruction (principal); K42.9 Umbilical hernia without obstruction or gangrene; E03.9 Hypothyroidism, unspecified; D50.9 Iron deficiency anemia, unspecified; Z86.718 Personal history of other venous thrombosis and embolism